=== PATIENT | female | born 1985 | race Caucasian/White ===

== ENCOUNTER 2017-02-23 16:56 | Inpatient (IN) | payer OTHER ==
[~2017-02-23] VITALS: Ht 162.6 cm; Wt 103.9 kg
[~2017-02-23 16:56] MED LIST: NO HOME MEDICATIONS
[2017-02-23] MEDS ORDERED: Lactated Ringer's 1,000 ML IV SCH (19:15)
[2017-02-23] MEDS ORDERED: Oxytocin 30 Units/500 mL LR 30 UNITS in IV Premix 1 EACH IV PRN ×2 (19:15→19:20)
[2017-02-23] MEDS ORDERED: Lactated Ringer's 1,000 ML IV PRN (19:16)
[2017-02-23] MEDS ORDERED: Sodium Chloride LOK Flush 10 mL Syringe IVFLUSH PRN (19:20)
[2017-02-23] MEDS ORDERED: Oxytocin 10 Unit/mL Inj IM PRN (19:20)
[2017-02-23] MEDS ORDERED: Ondansetron 2 mg/mL 2 mL Inj IVPUSH PRN (19:20)
[2017-02-23] MEDS ORDERED: Methylergonovine 0.2 mg/mL Inj IM PRN (19:20)
[2017-02-23] MEDS ORDERED: fentaNYL-PF 50 mCg/mL 2 mL Inj IVPUSH PRN (19:20)
[2017-02-23] MEDS ORDERED: Carboprost 250 mCg/mL Inj IM PRN (19:20)
[2017-02-23] MEDS ORDERED: Hemorrhage Kit, Post Partum XX ONE (19:20)
[2017-02-23 20:02] LABS: Mean Corpuscular Hemoglobin 25.3 pg (27.0-35.0); Mean Corpuscular Volume 79.6 fL (81-100)
[2017-02-24] MEDS ORDERED: Lactated Ringer's 1,000 ML IV SCH ×2 (00:56→05:28)
[2017-02-24] MEDS ORDERED: Lactated Ringer's 500 ML IV ONE (00:56)
[2017-02-24] MEDS ORDERED: fentaNYL 2 mCg/mL-Bupiv 0.125% 100 ML EPIDURAL SCH (01:00)
[2017-02-24] MEDS ORDERED: EPHEDrine Sulfate 50 mg/mL Inj IVPUSH PRN (01:00)
[2017-02-24] MEDS ORDERED: Ondansetron 2 mg/mL 2 mL Inj IVPUSH PRN (01:00)
[2017-02-24] MEDS ORDERED: Atropine 1 mg/10 mL (Code) Syringe IVPUSH PRN (01:00)
--- NOTE | 2017-02-24 01:36 | PCM.HPANE ---
Patient Data Date of Service: Feb 24, 2017 Surgeon Admitting Provider:Saul Fernandez MD Attending Provider:Saul Fernandez MD Primary Care Physician:Nopcp Other Provider: Reason for Visit Induction INDUCTION Ht/WT & BMI Weight (Kilograms): 103 Body Mass Index 39.3 Allergies Coded Allergies: No Known Drug Allergies (Verified Allergy, Unknown, 04/30/15) Past Anesthesia History Anesthesia History: Denies:: Abnormal Airway Diabetes History Hx Diabetes?: No MRSA MRSA: No Medications Hypertension Medication: No Home Meds Incl Beta Joshua: No Reported Medications [No Home Medications] No Conflict Check 04/30/15 History History of ENT Problems?: No HEENT History: Denies:: Abnormal Airway Denture Type: None Teeth Condition: Within Normal Limits Hx of Heart Problems?: No Cardiovascular History: Denies:: Cardiac Surgery Chest Pain Hx of Respiratory Problem?: No Respiratory History: Denies:: Asthma COPD Hx Neurologic Problems?: No Neurological History: Denies:: CVA TIA Hx of GI Problems?: No Hx of Problems?: No HX of Peritoneal Dialysis: No Female Hx: Denies:: Currently Hx Musculoskeletal Problems?: No Hx of Psycho/Social Problems?: No Hx Surgeries?: No Hx Diabetes: No Hx Alcohol Use: No Smoking Status: Never Smoker Stop/Bang Treated for Sleep Apnea?: No Do You Have a CPAP Machine?: No CRISTINA Risk Assessment: Low Risk, <3 Yes Risk Assessment Category Category 1A: Patient has history of documented sleep apnea, and HAS NOT received any narcotic, sedative or anesthesia administration during this stay. Category 1B: Patient has history of documented sleep apnea, and HAS received any narcotic , sedative or anesthesia administration during this stay Category 2: Patient has SUSPECTED Obstructive Sleep Apnea, and HAS received any narcotic , sedative or anesthesia administration during this stay. Category 3: Patient has SUSPECTED Obstructive Sleep Apnea and HAS NOT received narcotic, sedative or anesthesia administration during this stay. Category 4: Outpatient in Procedural Areas with known sleep apnea or who screen positive for High Risk via the STOP/BANG questionnaire. Exam Exam General Appearance: Alert, Oriented X3, Cooperative HEENT/AIRWAY: Neck Movement (OK), Mouth Opening (> 3 FB) Lungs: Normal Air Movement Heart: Regular Rate/Rhythm Meds/Labs/Diagnostics Admission Meds Current Medications Lactated Ringer's (Lr) 1,000 ml @ 125 mls/hr Q8H IV Last administered on t 20:13; Start 02/23/17 at 19:15 Labs Test 02/23/17 19:30 White Blood Count 7.3th/mm3 (3.8-10.1) Red Blood Count 4.55mil/mm3 (3.90-5.20) Hemoglobin 11.5g/dL (12.0-15.6) Hematocrit 36.2% (35.0-46.0) Mean Corpuscular Volume 79.6fL (81-100) Mean Corpuscular Hemoglobin 25.3pg (27.0-35.0) Mean Corpuscular Hemoglobin Concent 31.8% (32.0-37.0) Red Cell Distribution Width 15.2% (12.3-15.4) Platelet Count 197bil/L (150-400) Plan Impression Patient chart reviewed, patient interviewed and anesthestic plan with risks, benefits, and alternatives discussed, and informed consent obtained. NPO per Anesth. Guidelines: No (OB) ASA Physical Status: ASA2 Mod Systemic Disease Anesthetic Plan: Epidural Bene/Risks/Altern/Consents: Yes HP Complete Prior to Induction: Yes Karthik Healy MD Feb 24, 2017 00:57
--- NOTE | 2017-02-24 03:51 | HP ---
[address] [address] HISTORY AND PHYSICAL PATIENT: AUGUST FERNANDEZ : 1985 MR#: [id number] ADMIT: 02/23/2017 JOB ID: [id number] DATE: 02/23/2017, at 20:00 hour. [facility]: The patient has been followed prenatally at [facility], see record for details. Note due date of February 19, 2017, placing the patient at 40 and 4/7 weeks of gestation on admission. Note that course been relatively uncomplicated. UTI was treated early in . Recent GBS status was negative. Free T4 has been borderline low during , and ultimately patient was willing to initiate Levoxyl therapy. The patient declined quad screen although level 2 sonogram was negative. Placenta has been noted to be in anterior position, although cephalad to scar. Patient's reproductive history is significant for four vaginal deliveries, note 9 pound 14 ounce baby last time, and 600-700 cc of estimated blood loss associated with last delivery. First delivery was by section and last three successful trials of labor. The patient has wanted trial of labor this time, understanding benefits of vaginal as opposed to , yet also understanding risks, including uterine scar rupture which could lead to increased risk of loss of baby or brain damage or other problems, also maternal risks, including bleeding, potential need for urgent major surgery, etc. All questions have been answered and she has signed informed consent for trial of labor. In light of prior macrosomia, ultrasound was performed on February 23, 2017, and estimated weight was noted to be 8 pound 10 ounces. This is reassuring in light of prior macrosomia, as well as large current fundal height and estimated weight by exam perhaps in the 9 pound range. However, note that oligohydramnios was also noted, a surprised finding with amniotic fluid index of 3.8 cm. 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 I recommended to patient that she undergo labor induction; thus, she has been admitted in the evening of February 23, 2017, for that purpose. In summary, then, the patient is at 40 and 4/7 weeks gestation, there is oligohydramnios; and thus, indications for delivery. Signed consent is on chart for trial of labor. The patient has understood the risks of induction in the setting of prior and we will proceed initially with artificial rupture of membranes to see if this will allow patient to go into labor without any other medicinal agents. PHYSICAL EXAMINATION: On admission, last height, weight and blood pressure in the office were 64 inches, 228 pounds, and 110/54 respectively. Neck: No thyromegaly. Lungs: Clear to auscultation and percussion. Heart: Regular in rate and rhythm. Abdomen: Fundal height 42 cm. Positive heartbeat. Vertex presentation. Pelvic examination: Cervix on admission loose 3 cm/3.5 cm dilatation, 70% to 75% effacement, -1 to -2 station. Vertex presentation. DIAGNOSTIC DATA: See lab report. IMPRESSION: 1. A 40 and 4/7 weeks gestation, developing postdatism. 2. Oligohydramnios, suspect related to developing postdatism with potential for placental insufficiency. 3. Reproductive history: a. Prior , then x3, also miscarriage. Note, last term resulted in delivery vaginally of 9 pound 14 ounce baby, and there was 600-700 cc of estimated blood loss. 4. Mild hypothyroidism identified during , ultimately patient became willing to use replacement therapy. 5. Prior cystitis in , treated. 6. Anterior placental location, yet cephalad to scar per ultrasound. 7. Rh positive status, rubella immune, GBS negative. 8. Declined Tdap and flu vaccine during . 9. Increased weight. 10. See other hospital and office notes for additional diagnoses. PLAN: The patient is being admitted to [facility] on February 23, 2017, at 40 and 4/7 weeks of gestation with oligohydramnios, potential for developing placental insufficiency. For trial of labor, consent on chart, see discussion above. Artificial rupture of membranes planned, ultimately for Pitocin therapy if needed.
--- NOTE | 2017-02-24 03:55 | PROG NOTE ---
[address] [address] PROGRESS NOTE PATIENT: AUGUST FERNANDEZ : 1985 MR#: [id number] ADMIT: 02/23/2017 JOB ID: [id number] DATE: 02/24/2017, at 03:21 hour. [facility] NOTE: The patient was admitted to [facility] at 40 and 4/7 weeks gestation on February 23, 2017, in the setting of oligohydramnios. Artificial rupture of membranes was accomplished with return of a very small amount of yellowish-greenish thin fluid. Intrauterine pressure catheter was placed. The patient was observed for a period of time, yet she did not go into labor. Pitocin augmentation was ultimately initiated and uterine contractions became more frequent and intense, although typically on the more moderate side. Cervix, however, ultimately dilated up to 5 mm and patient requested epidural for anesthesia, and this was provided. heart tracing has continued to demonstrate good heart rate variability and, in fact, reactivity. IMPRESSION: 1. Now 40 and 5/7 weeks gestation. 2. Oligohydramnios, suspect related to developing postdatism/placental insufficiency. 3. Undergoing labor induction in the setting of oligohydramnios at 40 and 4/7 weeks gestation. 4. Undergoing trial of labor per patient's strong request, having refused section, consent on chart for trial of labor. 5. Prior section, then x3. PLAN: 1. Continuing Pitocin therapy using intrauterine pressure catheter to help guide therapy. 2. Anticipating relatively soon vaginal delivery/, having now approached the early active phase of labor.
[2017-02-24] MEDS ORDERED: Hemorrhage Kit, Post Partum XX ONE (05:30)
[2017-02-24] MEDS ORDERED: Methylergonovine 0.2 mg/mL Inj IM PRN (05:30)
[2017-02-24] MEDS ORDERED: Benzocaine (Dermoplast) 20% 60 Gm Spray TOPICAL PRN (05:30)
[2017-02-24] MEDS ORDERED: Influenza (Adult) Vaccine 0.5 mL Syringe IM ONE (05:30)
[2017-02-24] MEDS ORDERED: Witch Hazel-Glycerin Pads TOPICAL PRN (05:30)
[2017-02-24] MEDS ORDERED: Measles-Mumps-Rubella Vaccine 0.5 mL Inj SUBQ ONE (05:30)
[2017-02-24] MEDS ORDERED: HYDROcodone-APAP 5-325 mg Tablet PO PRN (05:30)
[2017-02-24] MEDS ORDERED: Carboprost 250 mCg/mL Inj IM PRN (05:30)
[2017-02-24] MEDS ORDERED: Oxytocin 10 Unit/mL Inj IM PRN (05:30)
[2017-02-24] MEDS ORDERED: TdaP Vaccine 0.5 mL Inj IM ONE (05:30)
[2017-02-24] MEDS ORDERED: LANOlin HPA 7 Gm Ointment TOPICAL PRN (05:30)
[2017-02-24] MEDS ORDERED: Oxytocin 30 Units/500 mL LR 30 UNITS in IV Premix 1 EACH IV PRN (05:30)
[2017-02-24] MEDS ORDERED: Sodium Chloride LOK Flush 10 mL Syringe IVFLUSH SCH (08:30)
[2017-02-25 06:29] LABS: Mean Corpuscular Hemoglobin 25.4 pg (27.0-35.0); Mean Corpuscular Volume 80.9 fL (81-100)
--- NOTE | 2017-02-25 06:55 | PCM.DIOB ---
Obstetrical Disch Instruction Dates of Hospitalization Date of Hospital Admission Feb 23, 2017 at 18:25 Providers Admitting Physician: Saul Fernandez MD Primary Care Physician: Claier Attending Physician: Saul Fernandez MD Discharge Diagnosis Problems: (1) Oligohydramnios Status: Acute ICD Code: O41.00X0 Diet Discharge Diet: No restrictions Activity Discharge Activity-General: Pelvic Rest for 6 weeks Dressing and Incisional Care Hygiene: May shower, Perineal care, Sitz bath, Dermoplast spray, Witch Colleen pads, Ice Follow Up Plan Follow-up appointment: Weeks (Follow up in 6 weeks for checkup.) Call your provider for: Fever or Chills, Shortness of breath, Heavy vaginal bleeding, Red painful breasts Saul Fernandez MD Feb 25, 2017 06:55
[2017-02-25] MEDS ORDERED: IBUP-1827 PO (06:56)
[2017-02-25 08:54] VITALS: BP 118/54; PULSE 81; RESP 16
[2017-02-25 10:12] VITALS: BP 118/54; PULSE 64
--- NOTE | 2017-02-25 12:09 | OP ---
[address] [address] OPERATIVE REPORT PATIENT: AUGUST FERNANDEZ : 1985 MR#: [id number] ADMIT: 02/23/2017 JOB ID: [id number] DATE OF SURGERY: 02/24/2017 [facility] NOTE: TIME: 0600 hours. SURGEON: Saul Fernandez MD. PREOPERATIVE DIAGNOSIS(ES): POSTOPERATIVE DIAGNOSIS(ES): DELIVERY NOTE: The patient was admitted to [facility] on the evening of February 23, 2017, with 40 and 4/7 weeks gestation and new discovery of oligohydramnios, suspect related to developing postdatism. Artificial rupture membranes was initially accomplished in this [place] patient, hoping that adequate labor would ensue without any need for medicinal agents. However, this did not occur, and Pitocin therapy was ultimately needed, with patient understanding benefits and risks. With intrauterine pressure catheter in place, Pitocin was gradually increased until a moderate labor pattern was achieved. Cervix dilated up to 5 cm, and epidural was requested and provided. The patient was then observed over time and ultimately further cervical dilatation occurred, as the active phase of labor was truly reached, and traversed up to 10 cm dilatation. There were some variable heart rate decelerations that occurred, scattered within the active phase of labor, yet no ominous pattern, and always with reasonable heart rate variability. Once , the patient then pushed the baby out with only mild effort, head, then shoulders, then body and extremities. Note true knot in the umbilical cord, not tight. Note that tailer out was in attendance in light of the thin meconium that had been noted earlier when artificially rupturing membranes, note no thick or particulate meconium identified at time of delivery. After 1 minute following delivery, umbilical cord was clamped and cut, and ongoing nurse and tailer out management continued. Cord blood was obtained for routine studies. Placenta with membranes then were spontaneously expelled, intact. Note 500 to 600 cc of blood and clots behind the placenta and membranes, yet otherwise very little bleeding occurred subsequent to passage of placenta and membranes. The uterus remained well contracted. Uterine bleeding was then minimal. Betadine solution was then used to cleanse the vulvovaginal region, and only laceration was that of a right-sided, short, first-degree perineal laceration, easily closed with 3-0 chromic suture in a running manner. Hemostasis was noted to be complete. Instrument, needle and sponge counts were all found to be correct. Procedures were then complete. Note that final exam/inspection included intrauterine palpation with finding of no additional placenta or placental or membranous tissue, and there was noted an intact lower uterine segment scar. This marked the close of all procedures. It certainly is anticipated that mother and baby will do very well during the timeframe. We will closely follow maternal blood loss, as there was greater than usual blood loss at delivery in addition to multiple prior births.
--- NOTE | 2017-02-25 12:12 | DIS ---
[address] [address] DISCHARGE SUMMARY PATIENT: AUGUST FERNANDEZ : 1985 MR#: [id number] ADMIT: 02/23/2017 JOB ID: [id number] DIS: 02/25/2017 DISCHARGE DIAGNOSES: 1. A 40 and 4/7 weeks , delivered. 2. Oligohydramnios, suspect on the basis of developing postdatism. 3. Thin meconium-stained fluid, suspect on the basis of developing postdatism. 4. Mild anemia. 5. Prior section, now status post successful trial of labor (vaginal after section). PROCEDURES PERFORMED DURING HOSPITALIZATION: 1. Labor induction by artificial rupture of membranes and then Pitocin therapy. 2. Vaginal delivery. 3. Perineal laceration repair. 4. Epidural anesthesia. HOSPITAL COURSE: The patient was admitted to on the evening of February 23, 2017, at 40 and 4/7 weeks gestation with oligohydramnios, for labor induction. Note prior section. The patient ultimately underwent procedures as described above. During the timeframe, the patient did well, with stable vitals, afebrile, with reasonable bleeding and pain management, without leg pain or shortness of breath, ambulating and voiding, and handling baby well. She requested discharge to home on the first day, i.e., on February 25, 2017, and her request was granted. DISCHARGE PROGRAM: The patient will call p.r.n., yet otherwise she will follow up at six weeks for checkup at [facility]. She will observe pelvic rest for six weeks. DISCHARGE MEDICATION: 1. Ibuprofen 600 mg, prescription written. 2. She also will use vitamin daily while nursing. She has a supply at home.
--- NOTE | 2017-03-06 10:33 | PATH ---
SURGICAL PATHOLOGY Attending Physician:Saul Fernandez M.D CASE STATUS: Signed Out PATIENT NAME: AUGUST FERNANDEZ PID: [id number] : 1985 DATE COLLECTED:02/24/2017 00:00 SPECIMEN: Placenta CLINICAL HISTORY: 40 5/7 WEEKS , MECONIUM, OLIGOHYDRAMNIOS PLACENTA FINAL DIAGNOSIS: Placenta, Membranes and Umbilical Cord: Three-vessel umbilical cord with focal perivascular hemorrhage consistent with perioperative effect. Normally formed membranes with no evidence of inflammation or other pathologic change ( membranes exhibited mild meconium staining by gross examination). Placenta (497 grams) with subdecidual fibrin; no evidence of villitis or vascular thrombosis. ICD10: P01.2 GROSS DESCRIPTION: The specimen is received unfixed, labeled with the patient's name, and consists of an intact placenta which includes the placental disc (497 g, 18.5 x 17.5 x 2.8 cm), membranes and umbilical cord (length-26.8 cm, diameter-1.3 x 1.1 cm). The membranes are ruptured at the free edge of the placenta and are newberry-green and semitranslucent. The umbilical cord has a furcate insertion 5.8 cm from the edge of the placenta and contains 3 vessels. The surface is newberry-green, smooth and shiny. The maternal surface is dark maroon with normal cotyledon formation. The placental body is spongy with no nodules, masses, lesions, hematomas or infarcts identified. Section code: (A) edge of placenta with membranes, umbilical cord; (B-E) placenta, 4 full-thickness sections. 03/01/17 ICD-9 CODES: CPT CODES: 1: 96686 Electronically Signed Out Nikolay May MD, PhD [facility], [place] [address] Technical component performed at [facility], [facility] [address], [address]
== END 2017-02-25 10:52 | disposition home or self-care (01) | DRG 775 ==
LOC: FBC 18:25
PROVIDERS: ADMIT Obstetrics & Gynecology; ATTEND Obstetrics & Gynecology
PROC: 3E033VJ Introduction of Other Hormone into Peripheral Vein, Percutaneous Approach (ICD-10-PCS; 2017-02-23)
PROC: 10H07YZ Insertion of Other Device into Products of Conception, Via Natural or Artificial Opening (ICD-10-PCS; 2017-02-23)
PROC: 10E0XZZ Delivery of Products of Conception, External Approach (ICD-10-PCS; principal; 2017-02-24)
PROC: 10907ZC Drainage of Amniotic Fluid, Therapeutic from Products of Conception, Via Natural or Artificial Opening (ICD-10-PCS; 2017-02-24)
PROC: 0HQ9XZZ Repair Perineum Skin, External Approach (ICD-10-PCS; 2017-02-24)
DX: O41.03X0 Oligohydramnios, third trimester, not applicable or unspecified (principal); O34.211 Maternal care for low transverse scar from previous cesarean delivery; O70.0 First degree perineal laceration during delivery; Z3A.40 40 weeks gestation of pregnancy; Z37.0 Single live birth